=== PATIENT | female | born 1970 | race American Indian/Alaskan Native ===

== ENCOUNTER 2018-05-06 21:16 | Emergency (ER) | payer BC, OTHER ==
[2018-05-06 21:35] VITALS: BMI 27.4
[2018-05-06 21:50] VITALS: RESP 18; TEMP 98.6; O2SAT 100
--- NOTE | 2018-05-06 22:23 | ED PDOC ---
Arrival/HPI - General Chief Complaint: Trauma Time Seen by Provider: 05/06/18 21:47 Historian: Patient - History of Present Illness Narrative History of Present Illness (Text): 05/06/18 22:00 47 year old female, whose past medical history includes hypertension, presents to the emergency department complaining of headache s/p trip and fall down stairs 6 hours ago. Patient reports she trip and fell down 3 steps and hit the right side of her head and right elbow against the wall. Patient was able to walk afterwards to feel better, but started developing a headache so she came here. Patient denies any loss of consciousness, vision change, neuro symptoms such as numbness/weakness, nasuea, vomiting, dizzines, or any other complaints. PMD: None Time/Duration: 4-6 hours Symptom Onset: Gradual Symptom Course: Unchanged Activities at Onset: Light Context: Tripped Past Medical History - Provider Review Nursing Documentation Reviewed: Yes - Cardiac Hx Hypertension: Yes - Psychiatric Hx Psychophysiologic Disorder: No Hx Substance Use: No Family/Social History - Physician Review Nursing Documentation Reviewed: Yes Family/Social History: No Known Family HX Smoking Status: Never Smoked Hx Alcohol Use: No Hx Substance Use: No Allergies/Home Meds Allergies/Adverse Reactions: Allergies No Known Allergies Allergy (Verified 05/06/18 21:36) Home Medications: Home Meds Medication Instructions Recorded Confirmed Amlodipine Besylate/Benazepril 1 cap PO DAILY 05/18/16 05/06/18 [Amlodipine-Benazepril 10-40 mg] Nebivolol [Bystolic] 10 mg PO BID 05/18/16 05/06/18 RX: Aspirin [Aspirin Chewable] 81 mg PO DAILY 05/06/18 05/06/18 Review of Systems - Physician Review All systems were reviewed & negative as marked: Yes - Review of Systems Constitutional: absent: Fevers Eyes: absent: Vision Changes Gastrointestinal: absent: Nausea, Vomiting Neurological: Headache. absent: Dizziness, Focal Weakness, Gait Changes, Other (numbness) Physical Exam Vital Signs Reviewed: Yes Vital Signs Temp Pulse Resp BP Pulse Ox 05/06/18 21:37 98.6 F 77 18 116/81 100 Temperature: Afebrile Blood Pressure: Normal Pulse: Regular Respiratory Rate: Normal Appearance: Positive for: Well-Appearing, Non-Toxic, Comfortable Pain Distress: None Mental Status: Positive for: Alert and Oriented X 3 - Systems Exam Head: Present: Atraumatic, Normocephalic Pupils: Present: PERRL Extroacular Muscles: Present: EOMI Conjunctiva: Present: Normal Mouth: Present: Moist Mucous Membranes Neck: Present: Normal Range of Motion Respiratory/Chest: Present: Clear to Auscultation, Good Air Exchange. No: Respiratory Distress, Accessory Muscle Use Cardiovascular: Present: Regular Rate and Rhythm, Normal S1, S2. No: Murmurs Abdomen: No: Tenderness, Distention, Peritoneal Signs Back: Present: Normal Inspection Upper Extremity: Present: Normal Inspection. No: Cyanosis, Edema, Tenderness (no tenderness to right elbow or wrist) Lower Extremity: Present: Normal Inspection. No: Edema Neurological: Present: GCS=15, CN II-XII Intact, Speech Normal Skin: Present: Warm, Dry, Normal Color. No: Rashes Psychiatric: Present: Alert, Oriented x 3, Normal Insight, Normal Concentration Medical Decision Making ED Course and Treatment: 05/06/18 22:00 Impression: 47 year old female presents complaining of headache s/p trip and fall down stairs 6 hours ago. Patient reports she trip and fell down 3 steps and hit the right side of her head and right elbow against the wall Plan: -- disposition Progress Notes: Patient AAOx3 with no neurological deficits. Able to ambulate without difficulty. Has mild headache. CT head not clinically indicated at this time. 05/06/18 22:17 Patient is in no acute distress. I have discussed the plan with the patient, who expresses understanding. Patient in agreement with plan to be discharged home. Patient is stable for discharge. Patient was instructed to follow up with physician or return if symptoms worsen or new concerning symptoms arise. - Scribe Statement The provider has reviewed the documentation as recorded by the Zafar Loya Provider Scribe Attestation: All medical record entries made by the Zafar were at my direction and personally dictated by me. I have reviewed the chart and agree that the record accurately reflects my personal performance of the history, physical exam, medical decision making, and the department course for this patient. I have also personally directed, reviewed, and agree with the discharge instructions and disposition. Disposition/Present on Arrival - Present on Arrival Any Indicators Present on Arrival: No History of DVT/PE: No History of Uncontrolled Diabetes: No Urinary Catheter: No History of Decub. Ulcer: No History Surgical Site Infection Following: None - Disposition Have Diagnosis and Disposition been Completed?: Yes Diagnosis: Closed head injury Disposition: HOME/ ROUTINE Disposition Time: 21:47 Condition: STABLE Discharge Instructions (ExitCare): Closed Head Injury (DC) Additional Instructions: JULI LIVINGSTON, thank you for letting us take care of you today. Your provider was Abida Huerta MD and you were treated for CHECK UP ON HEAD. The emergency medical care you received today was directed at your acute symptoms. If you were prescribed any medication, please fill it and take as directed. It may take several days for your symptoms to resolve. Return to the Emergency Department if your symptoms worsen, do not improve, or if you have any other problems. Please contact your doctor or call one of the physicians/clinics you have been referred to that are listed on the Patient Visit Information form that is included in your discharge packet. Bring any paperwork you were given at discharge with you along with any medications you are taking to your follow up visit. Our treatment cannot replace ongoing medical care by a primary care provider outside of the emergency department. Thank you for allowing the [facility] team to be part of your care today. If you had an X-Ray or CT scan: A Radiologist will review the ED reading if any change in treatment is needed we will contact you. If you had a blood, urine, or wound culture: It will take several days for the results, if any change in treatment is needed we will contact you. If you had an STI test: It will take 48 hours for the results. Please call after 1 week if you have not heard back. Referrals: PCP,NO [Primary Care Provider] - Follow up with primary Forms: [employer] (Ukrainian)
[2018-05-07 00:45] VITALS: BP 112/78; PULSE 82
== END 2018-05-06 22:17 | disposition home or self-care (01) ==
LOC: ED 21:16
DX: S09.90XA Unspecified injury of head, initial encounter (principal); W10.9XXA Fall (on) (from) unspecified stairs and steps, initial encounter; I10 Essential (primary) hypertension